=== PATIENT | female | born 1955 | race Caucasian/White ===

== ENCOUNTER 2019-01-25 14:45 | Emergency (ER) | payer MEDICARE ==
[~2019-01-25] VITALS: Ht 170.2 cm; Wt 86.2 kg
[2019-01-25] MEDS ORDERED: HYDROXYCHLOROQUINE 200 MG TAB (15:11)
[2019-01-25] MEDS ORDERED: NORTRIPTYLINE HCL 75 MG (15:11)
[2019-01-25] MEDS ORDERED: GABAPENTIN 300 MG CAPSULE (15:11)
[2019-01-25] MEDS ORDERED: ZOLPIDEM TARTRATE 5 MG TABLET (15:11)
[2019-01-25] MEDS ORDERED: ESTRADIOL 0.5 MG TABLET (15:11)
[2019-01-25] MEDS ORDERED: MELOXICAM 15 MG TABLET (15:11)
[2019-01-25] MEDS ORDERED: LISI10TA2 PO (15:18)
--- NOTE | 2019-01-25 15:24 | ED General ---
General Chief Complaint: Laceration Stated Complaint: PT CUT THUMB WITH KNIFE Nursing Triage Note: PT CUT THE BASE OF HER LEFT THUMB WHILE CUTTING UP CAULIFLOWER. APPROXIMATELY A 2.5 CM LACERATION. BLEEDING CONTROLLED. Nursing Sepsis Screen: No Definite Risk Source of Information: Patient Exam Limitations: No Limitations History of Present Illness Date Seen by Provider: Jan 25, 2019 Time Seen by Provider: 14:48 Initial Comments This 63-year-old woman presents to the emergency room with a laceration at the base of her left thumb on the palmar aspect. She accidentally cut herself with a knife while cutting cauliflower. The knife was clean. She is past due for her tetanus immunization. Wound is no longer bleeding. She retains sensation and full range of motion of her thumb. Allergies and Home Medications Allergies Coded Allergies: Thiazides (Verified Allergy, Unknown, 01/25/19) Patient Home Medication List Home Medication List Reviewed: Yes Review of Systems Review of Systems Constitutional: no symptoms reported EENTM: no symptoms reported Respiratory: no symptoms reported Cardiovascular: no symptoms reported Gastrointestinal: no symptoms reported Genitourinary: no symptoms reported : No Musculoskeletal: no symptoms reported Skin: see HPI Psychiatric/Neurological: No Symptoms Reported Hematologic/Lymphatic: No Symptoms Reported Past Mcjcylo-Txckbe-Bluaej Hx Patient Social History Alcohol Use: Denies Use Recreational Drug Use: No Smoking Status: Never a Smoker 2nd Hand Smoke Exposure: No Recent Foreign Travel: No Contact w/Someone Who Travel: No Recent Infectious Disease Expo: No Recent Hopitalizations: No Physical Abuse: No Sexual Abuse: No Mistreated: No Fear: No Seasonal Allergies Seasonal Allergies: No Past Medical History Surgeries: Yes (CARPAL TUNNEL, LEFT KNEE) Hysterectomy, Joint Replacement, Orthopedic Respiratory: No Cardiac: No 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 oz. 86.950915fn; BMI Method:Stated General Appearance: No Apparent Distress, WD/WN HEENT: PERRL/EOMI, Normal ENT Inspection Respiratory: Lungs Clear, Normal Breath Sounds, No Accessory Muscle Use Cardiovascular: Regular Rate, Rhythm, No Edema, No Murmur Extremity: Other (3 cm laceration on the palmar aspect of the left thumb base extending into the subcutaneous and fascial tissues. Capillary refill, sensation, and range of motion of the thumb all intact.) Neurologic/Psychiatric: Alert, Oriented x3, No Motor/Sensory Deficits, Normal Mood/Affect Skin: Normal Color, Warm/Dry, Other (see above) Procedures/Interventions Wound Location: Upper Extremities Other Wound Location Base of the thumb on the left hand Wound Length (cm): 3 Wound's Depth, Shape: linear, sub Q Wound Explored: clean Irrigated w/ Saline (ccs): 500 Betadine Prep?: Yes Volume Anesthetic (ccs): 4 Suture: Ethlion Suture Size: 4-0 Number of Sutures: 6 Sterile Dressing Applied?: Yes Progress Skin was cleaned with alcohol. Local injection with one percent lidocaine was administered for anesthesia. Wound was then cleaned with sterile saline and chlorhexidine. Wound was then rinsed with sterile saline. Betadine prep was applied. Laceration was repaired with monofilament suture. Wound was dressed by ER staff. Patient tolerated the procedure quite well. Progress/Results/Core Measures Suspected Sepsis Recent Fever Within 48 Hours: No Infection Criteria Present: None New/Unexplained Altered Menta: No Sepsis Screen: No Definite Risk SIRS Temperature:97.9 Pulse: 69 Respiratory Rate: 18 Blood Pressure 129 /50 Mean: 76 Results/Orders My Orders Orders - JENN AGUDELO MD Dipht,Pertuss(Acell),Tet Adult (Boostrix (01/25/19 15:30) Medications Given in ED Current Medications Medications Dose Ordered Sig/Paramjit Route Start Time Stop Time Status Last Admin Dose Admin Diphtheria/ Tetanus/Acell Pertussis 0.5 ml ONCE ONCE IM 01/25/19 15:30 01/25/19 15:31 DC 01/25/19 15:29 0.5 ML Vital Signs/I&O 01/25/19 01/25/19 15:01 15:33 Temp 97.9 97.9 Pulse 69 69 Resp 18 18 B/P (MAP) 129/50 (76) 129/50 (76) Pulse Ox 98 O2 Delivery Room Air Capillary Refill : Less Than 3 Seconds Blood Pressure Mean: 76 Progress Note : Progress Note Laceration was cleaned and repaired. Tetanus booster was administered. Departure Impression Primary Impression: Laceration of left thumb Qualified Codes: S61.012A - Laceration without foreign body of left thumb without damage to nail, initial encounter Disposition: 01 HOME, SELF-CARE Condition: Improved Departure-Patient Inst. Decision time for Depature: 15:00 Referrals: SELFKALEB MD (PCP/Family) Primary Care Physician Patient Instructions: Laceration Repair With Stitches (DC) Add. Discharge Instructions: Keep the wound clean and dry except for normal handwashing and showering. You may allow soapy water to run over the wound but avoid scrubbing directly over the stitches. Do not submerge until after stitches are removed. Have stitches removed in about 10 days. Cover with gloves or a clean dressing when working in dirty environments. Monitor for signs of infection such as increasing redness, increasing swelling, escalating pain, puslike drainage, or fever. Return to care if you notice these symptoms. For pain may take ibuprofen up to 600 mg every 6 hours and/or Tylenol ( acetaminophen) up to 1000 mg every 6 hours. Avoid using both ibuprofen and meloxicam together. All discharge instructions reviewed with patient and/or family. Voiced understanding. JENN AGUDELO MD Jan 25, 2019 15:24
[2019-01-25] MEDS ORDERED: TETANUS,DIPTH,PERTUSS P/F (BOOSTRIX) 0.5 ML VIAL IM ONE (15:30)
[2019-01-25 15:33] VITALS: BP 129/50
== END 2019-01-25 16:00 | disposition home or self-care (01) ==
LOC: ER FS 14:47
DX: S61.012A Laceration without foreign body of left thumb without damage to nail, initial encounter (principal); M06.9 Rheumatoid arthritis, unspecified; Z98.890 Other specified postprocedural states; Z88.8 Allergy status to other drugs, medicaments and biological substances; Z90.710 Acquired absence of both cervix and uterus; Z23 Encounter for immunization; W26.0XXA Contact with knife, initial encounter
CPT/HCPCS: 90471; 90715

== ENCOUNTER → 2020-01-05 | Outpatient (CLI) | payer MEDICARE ==
[~2020-01-05] MED LIST: ESTRADIOL 0.5 MG TABLET; GABAPENTIN 300 MG CAPSULE; HYDROXYCHLOROQUINE 200 MG TAB; LISI10TA2 PO; MELOXICAM 15 MG TABLET; NORTRIPTYLINE HCL 75 MG; ZOLPIDEM TARTRATE 5 MG TABLET
--- NOTE | 2020-01-05 13:27 | Diagnostic Imaging Report ---
PROCEDURE: MRI lumbar spine. TECHNIQUE: Multiplanar, multisequence MRI of the lumbar spine was performed without contrast. INDICATION: Injury five years ago, back pain. COMPARISON: There are no prior studies available for comparison. FINDINGS: The coronal reconstructed images do show levoscoliosis of the lumbar spine. The T2 parasagittal images reveal that there is desiccation of the discs at every level and that there is narrowing of the disc space at L3-L4. The axial images through this level show that there is trefoil stenosis and narrowing of the neuroforamen bilaterally, particularly on the right. The AP diameter of the thecal sac at this level is approximately 6.1 mm. There is also a disc bulge eccentric to the left at L4-L5. The disc compresses the left ventral aspect of the thecal sac and narrows the AP diameter to 5.6 mm. There is also narrowing of the neuroforamen on the left at this level. There is only mild narrowing of the neuroforamen on the right. At the L5-S1 level, there is also a disc bulge eccentric to the left. The AP diameter of the thecal sac is narrowed to 10 mm. There is also mild narrowing of the neuroforamen on the left at L5-S1. There is no evidence for spinal stenosis or nerve root encroachment at L1-L2 or L2-L3. There is no abnormal signal arising from the cord or other vertebral bodies to indicate an acute abnormality. There is no sign of a paraspinal mass. IMPRESSION: 1. 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 There is trefoil stenosis at both of these levels as well as neuroforaminal narrowing bilaterally, particularly on the right at L3-L4 and on the left at L4-L5. 2. There is borderline stenosis on the left at L5-S1 with mild narrowing of the neuroforamen on the left. 3. There is no sign of an acute bony abnormality or of a cord lesion. Dictated by: Dictated on workstation # [id number]
== END ==
LOC: RAD 12:14
PROVIDERS: ATTEND Family Medicine
DX: M51.36 Other intervertebral disc degeneration, lumbar region (principal); M51.26 Other intervertebral disc displacement, lumbar region; M89.9 Disorder of bone, unspecified; M24.20 Disorder of ligament, unspecified site; M48.07 Spinal stenosis, lumbosacral region
CPT/HCPCS: 72148

== ENCOUNTER → 2021-06-07 | Outpatient (CLI) | payer MEDICARE ==
[~2021-06-07] MED LIST changes: -LISI10TA2 PO; +LISI10TA25 PO
--- NOTE | 2021-06-07 15:46 | Diagnostic Imaging Report ---
INDICATION: Postmenopausal screening COMPARISON: Baseline FINDINGS: AP Spine L1-L4: [BMD (g/cm2): NA] [T-Score: NA] [Z-Score: NA] [BMD Previous: NA] [BMD % Change: NA] LT Hip Neck: [BMD (g/cm2): 0.906] [T-Score: -1.0] [Z-Score: 0.0] LT Hip Total: [BMD (g/cm2):0.969] [T-Score:-0.3] [Z-Score: 0.3] [BMD Previous: NA] [BMD % Change: NA] RT Hip Neck: [BMD (g/cm2):0.910] [T-Score:-0.9] [Z-Score:0.1] RT Hip Total: [BMD (g/cm2):1.033] [T-score:0.2] [Z-Score:0.9] [BMD Previous:NA] [BMD % Change:NA] *Indicates significant change from prior examination based on 95% confidence level. World Health Organization criteria for BMD interpretation classify patients as Normal (T-score at or above -1.0), Osteopenic (T-score between -1.0 and -2.5) or Osteoporotic (T-score at or below -2.5). LIMITATIONS AND MODIFICATION: None. FRACTURE RISK (FRAX SCORE): The ten year probability of (%): Major Osteoporotic Fracture: [NA] Hip Fracture: [NA] IMPRESSION: 1. Normal bone mineral density. 2. Baseline examination. 3. See below National Osteoporosis Foundation guidelines on when to potentially initiate pharmacologic therapy. Based on the National Osteoporosis Foundation Guidelines, pharmacologic treatment should be initiated in any of the following, unless clinical conditions suggest otherwise: * Any patient with prior fragility fracture of the hip or vertebrae. A spine fracture indicates 5X risk for subsequent spine fracture and 2X risk for subsequent hip fracture. * Osteoporosis (T-score <-2.5). * Postmenopausal women and men age 50 and older with low bone mass/osteopenia (T-score between -1.0 and -2.5) by DXA and 10-year major osteoporotic fracture greater than 20% or a 10-year probability of hip fracture greater than 3%. These fracture risks are supplied above in the FRAX score, if applicable. * Clinician judgement and/or patient preferences may indicate treatment for people with 10-year fracture probabilities above or below these levels. Dictated by: Dictated on workstation # [id number]
== END ==
LOC: RAD 12:30
PROVIDERS: ATTEND Family Medicine
DX: Z78.0 Asymptomatic menopausal state (principal)
CPT/HCPCS: 77080

== ENCOUNTER 2021-11-24 09:14 | Outpatient (CLI) | payer MEDICARE ==
[~2021-11-24] VITALS: Ht 170.2 cm; Wt 83.9 kg
[2021-11-24 09:19] VITALS: BP 127/77
[2021-11-24] MEDS ORDERED: ONDANSETRON 4 MG/2 ML (SDV) Z0FRAN IV PRN (09:30)
[2021-11-24] MEDS ORDERED: ACETAMINOPHEN 500 MG TAB (TYLENOL) PO PRN (09:30)
[2021-11-24] MEDS ORDERED: EPINEPHrine INJECTION 1 MG/ML AMP IM PRN (09:30)
[2021-11-24] MEDS ORDERED: BAMLANIVIMAB 700 MG/ETESEVIMAB 1,400 MG IN NS IV ONE ×3 (09:30)
[2021-11-24] MEDS ORDERED: diphenhydrAMINE 50 MG/ML INJ (BENADRYL) IV PRN (09:30)
[2021-11-24 09:56] VITALS: BP 131/78
== END 2021-11-24 10:28 | disposition home or self-care (01) ==
LOC: INFUSION 09:14
PROVIDERS: ATTEND Allergy & Immunology
DX: U07.1 COVID-19 (principal)

== ENCOUNTER 2023-09-22 15:56 | Emergency (ER) | payer MEDICARE ==
[~2023-09-22] VITALS: Ht 167.7 cm; Wt 86.2 kg
[2023-09-22 16:00] VITALS: BP 150/84
--- NOTE | 2023-09-22 16:06 | ED Lower Extremity ---
General Stated Complaint: LT LEG PAIN History of Present Illness Date Seen by Provider: Sep 22, 2023 Time Seen by Provider: 16:04 Initial Comments 67-year-old female presents with some bruising and tenderness to her left lower extremity. She fell about a week ago. She reports it is continuing to be sore and little swollen and wanted to have it evaluated. She does have some discoloration to the area. She is able to bear weight. Allergies and Home Medications Allergies Coded Allergies: Thiazides (Verified Allergy, Unknown, 01/25/19) Patient Home Medication List Home Medication List Reviewed: Yes [Estradiol 0.5 Mg Tablet] , (Reported) Entered as Reported by: RAJWINDER DUQUE on 01/25/191510 [Gabapentin 300 Mg Capsule] , (Reported) Entered as Reported by: RAJWINDER DUQUE on 01/25/191510 [Hydroxychloroquine 200 Mg Tab] , (Reported) Entered as Reported by: RAJWINDER DUQUE on 01/25/191510 [Meloxicam 15 Mg Tablet] , (Reported) Entered as Reported by: RAJWINDER DUQUE on 01/25/191510 [Nortriptyline Hcl 75 Mg Cap] , (Reported) Entered as Reported by: RAJWINDER DUQUE on 01/25/191510 [Zolpidem Tartrate 5 Mg Tablet] , (Reported) Entered as Reported by: RAJWINDER DUQUE on 01/25/191510 Review of Systems Constitutional: no symptoms reported EENTM: no symptoms reported Cardiovascular: no symptoms reported Gastrointestinal: no symptoms reported Genitourinary: no symptoms reported Musculoskeletal: see HPI Skin: see HPI Past Rujdcoj-Hwtoem-Bgykol Hx Seasonal Allergies Seasonal Allergies: No Past Medical History Surgeries: Yes (CARPAL TUNNEL, LEFT KNEE) Hysterectomy, Joint Replacement, Orthopedic Respiratory: No Cardiac: No 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 oz. 86.866420ma; BMI Method:Stated General Appearance: WD/WN Cardiovascular: normal peripheral pulses, regular rate, rhythm Respiratory: lungs clear, normal breath sounds Hips: bilateral hip non-tender Legs: left leg ecchymosis, left leg soft tissue tenderness (left gil/lower leg ) Knees: bilateral knee non-tender Ankles: bilateral ankle non-tender Feet: bilateral foot non-tender Neurologic/Psychiatric: alert, normal mood/affect, oriented x 3 Skin: ecchymosis (left gil ) Procedures/Interventions Suture Size: 4-0 Progress/Results/Core Measures Results/Orders My Orders Orders - MEHRAN GOTTI DO Tibia Fibula 2 View Left (09/22/23 16:06) Vital Signs/I&O 09/22/23 16:00 Temp 35.6 Pulse 96 Resp 17 B/P (MAP) 150/84 (106) O2 Delivery Room Air Progress Progress Note : Progress Note Patient's x-rays are reviewed and initial interpretation negative by me with final interpretation per radiology report. Patient's symptoms are consistent w ith a contusion/hematoma of her lower leg. There is no signs of a compartment syndrome. Patient has good pulses. Patient's presentation is not consistent with blood clot or no signs of infection. I discussed with her supportive care including Marcial wrap, elevation, warm moist heat. She is stable and discharged home. Departure Impression Primary Impression: Contusion of left lower leg, initial encounter Disposition: 01 HOME, SELF-CARE Condition: Stable Departure-Patient Inst. Referrals: SELF,KALEB LONG (PCP) Primary Care Physician Patient Instructions: Taking care of bruises, Minor Contusion ED Add. Discharge Instructions: Marcial wrap to left lower leg. Elevate when not ambulating. Warm moist heat for 10 to 15 minutes at a time 3-4 times daily. Follow-up with your primary care provider if symptoms or not improving over the next couple days or if they continue to worsen for recheck of your symptoms. MEHRAN GOTTI DO Sep 22, 2023 16:06
--- NOTE | 2023-09-22 16:26 | Diagnostic Imaging Report ---
EXAMINATION: Left tibia and fibula radiographs, 2 views. COMPARISON: None. HISTORY: 67-year-old female, fall one week ago. Left tibia and fibula pain. FINDINGS: There is an intact total left knee prosthesis without identified complication. There is no identified acute fracture. The alignment of the ankle mortise is unremarkable. There is no identified unexpected radiopaque foreign body. IMPRESSION: No acute bony abnormality of the left tibia or fibula. Dictated by: Dictated on workstation # [id number]
== END 2023-09-22 16:30 | disposition home or self-care (01) ==
LOC: EDUNIT# 15:56 → ER FS 15:57
DX: S80.12XA Contusion of left lower leg, initial encounter (principal); W19.XXXA Unspecified fall, initial encounter
CPT/HCPCS: 73590